=== PATIENT | female | born 1975 | race American Indian/Alaskan Native ===

== ENCOUNTER 2018-04-10 13:13 | Outpatient (CLI) | payer OTHER ==
[2018-04-10] MEDS ORDERED: OBSTETRIX EC C1 EACH PO (13:38)
== END 2018-04-11 11:01 | disposition home or self-care (01) ==
LOC: OBS/DEL 13:13
DX: O76 Abnormality in fetal heart rate and rhythm complicating labor and delivery (principal); O60.03 Preterm labor without delivery, third trimester; Z34.03 Encounter for supervision of normal first pregnancy, third trimester

== ENCOUNTER 2018-04-14 11:30 | Outpatient (CLI) | payer OTHER ==
[~2018-04-14 11:30] MED LIST: OBSTETRIX EC C1 EACH PO
== END 2018-04-14 12:45 | disposition home or self-care (01) ==
LOC: NST 11:30
DX: Z34.83 Encounter for supervision of other normal pregnancy, third trimester (principal)

== ENCOUNTER 2018-04-18 16:31 | Inpatient (IN) | payer OTHER ==
[~2018-04-18] VITALS: Ht 162.6 cm; Wt 2.7 kg
[2018-05-02] MEDS ORDERED: SURFAK240 M1 PO (13:31)
[2018-05-02] MEDS ORDERED: PERCOCET 5-3251 EACH PO (13:31)
== END 2018-05-02 19:42 | disposition home or self-care (01) | DRG 765 ==
LOC: LDR 04-28 10:01 → SURG-SUITE 04-28 10:01 → LDR 05-20 16:30
PROVIDERS: Specialist
PROC: 4A033R1 Measurement of Arterial Saturation, Peripheral, Percutaneous Approach (ICD-10-PCS; 2018-04-28)
PROC: 4A1HXCZ Monitoring of Products of Conception, Cardiac Rate, External Approach (ICD-10-PCS; 2018-04-28)
PROC: 10D00Z1 Extraction of Products of Conception, Low, Open Approach (ICD-10-PCS; principal; 2018-04-28 16:00)
DX: O32.8XX0 Maternal care for other malpresentation of fetus, not applicable or unspecified (principal); O41.03X0 Oligohydramnios, third trimester, not applicable or unspecified; Z3A.37 37 weeks gestation of pregnancy; Z37.0 Single live birth

== ENCOUNTER 2023-09-23 08:05 | Day surgery (SDC) | payer OTHER ==
[~2023-09-23 08:05] MED LIST changes: +PERCOCET 5-3251 EACH PO; +SURFAK240 M1 PO
== END 2023-09-23 12:00 | disposition home or self-care (01) ==
LOC: AMB-ENDOS 08:05
PROVIDERS: ATTEND Colon & Rectal Surgery
DX: D12.0 Benign neoplasm of cecum (principal); D12.3 Benign neoplasm of transverse colon; Z12.11 Encounter for screening for malignant neoplasm of colon; Z88.6 Allergy status to analgesic agent; Z20.822 Contact with and (suspected) exposure to COVID-19